=== PATIENT | female | born 1950 | race Caucasian/White ===

== ENCOUNTER 2017-07-17 18:06 | Emergency (ER) | payer OTHER, MEDICARE, MEDICAID ==
[~2017-07-17] VITALS: Ht 162.6 cm; Wt 57.6 kg
[~2017-07-17 18:06] MED LIST: HYDR1CAP2 PO; MUPI1OIN5 NS
--- OUTSIDE RECORDS SUMMARY | 2017-07-17 18:13 | XMS REPORT ---
Author Author KHAI JONES [facility] Address [address] [place] [address] Care Team Providers Care Movie Operator Name Role Phone KHAI JONES Unavailable PROBLEMS Type Condition ICD9-CM Code MVC20-UJ Code Onset Dates Condition Status SNOMED Code Problem Acute bronchitis due to infection J20.8 Active 363051765 Problem Arthritis M19.90 Active 7351339 Problem Renal insufficiency N28.9 Active 917034593 Problem Hyperkalemia E87.5 Active 96526149 Problem Left hip pain M25.552 Active 18450849 Problem Tobacco dependence F17.200 Active 83331320 Problem Depression F32.9 Active 36243950 Problem Upper respiratory infection J06.9 Active 72546882 Problem Long-term use of high-risk medication Z79.899 Active 559768958 Problem Anxiety F41.9 Active 76412192 ALLERGIES No Information SOCIAL HISTORY Never Assessed PLAN OF CARE VITAL SIGNS MEDICATIONS Medication Instructions Dosage Frequency Start Date End Date Duration Status Alprazolam 0.5 MG Orally bid prn 1/2-1 tablet Active RESULTS No Results PROCEDURES No Known procedures IMMUNIZATIONS No Known Immunizations MEDICAL (GENERAL) HISTORY Type Description Date Medical History Depression Medical History Anxiety Medical History Seasonal Allergies Medical History ANNE (obstructive sleep apnea) Surgical History left eye surgery Surgical History partial hysterectomy 1982 Surgical History cataract-lens implants
--- OUTSIDE RECORDS SUMMARY | 2017-07-17 18:13 | XMS REPORT ---
Author Author KHAI JONES Organization eClinicalWorks Address Unknown Phone Unavailable Care Team Providers Care Bee Robber Name Role Phone KHAI JONES CP Unavailable Allergies No Known Allergies Problems Problem Type Condition Code Onset Dates Condition Status Problem Other, multiple, and unspecified sites, insect bite, nonvenomous, without mention of infection 919.4 Active Problem Pain in joint, site unspecified 719.40 Active Problem Pain in joint, shoulder region 719.41 Active Medications No Known Medications Results No Known Results Summary Purpose eClinicalWorks Submission
--- OUTSIDE RECORDS SUMMARY | 2017-07-17 18:13 | XMS REPORT ---
Author Author KHAI JONES [facility] eClinicalWorks Address Unknown Phone Unavailable Care Team Providers Care Manager Neonatal Name Role Phone KHAI JONES CP Unavailable Allergies, Adverse Reactions, Alerts Substance Reaction Event Type Sulfacetamide Sod-Sulfur Info Not Available Drug Allergy Eggs Info Not Available Non Drug Allergy Problems Problem Type Condition Code Onset Dates Condition Status Assessment Anxiety F41.9 Active Assessment Arthritis M19.90 Active Problem Upper respiratory infection J06.9 Active Problem Arthritis M19.90 Active Problem Long-term use of high-risk medication Z79.899 Active Problem Renal insufficiency N28.9 Active Assessment Renal insufficiency N28.9 Active Problem Anxiety F41.9 Active Problem Depression F32.9 Active Medications Medication Code System Code Instructions Start Date End Date Status Dosage Alprazolam [facility] [address]-43 0.5 MG Orally bid prn 1/2-1 tablet Diclofenac Sodium [facility] [address]-38 75 mg oral Once a day prn 1 tablet by Oral route 2 times per day for 30 day Procedures Procedure Coding System Code Date Office Visit, Est Pt., Level 3 CPT-4 29364 Mar 24, 2016 [facility] VISIT ESTABLISHED PATIENT CPT-4 G0467 Mar 24, 2016 Vital Signs Date/Time: Mar 24, 2016 Cardiac Monitoring Heart Rate 76 bpm Weight 130.9 lbs Height 64 in BMI 22.47 Index Blood Pressure Diastolic 68 mmHg Blood Pressure Systolic 108 mmHg Results No Known Results Summary Purpose eClinicalWorks Submission
--- OUTSIDE RECORDS SUMMARY | 2017-07-17 18:13 | XMS REPORT ---
Author Author KHAI JONES [facility] eClinicalWorks Address Unknown Phone Unavailable Care Team Providers Care Centrifugal Spinner Name Role Phone KHAI JONES CP Unavailable Allergies, Adverse Reactions, Alerts Substance Reaction Event Type Sulfacetamide Sod-Sulfur Info Not Available Drug Allergy Eggs Info Not Available Non Drug Allergy Problems Problem Type Condition Code Onset Dates Condition Status Assessment Sinusitis J32.9 Active Assessment Anxiety F41.9 Active Assessment Depression F32.9 Active Problem Arthritis M19.90 Active Problem Anxiety F41.9 Active Problem Upper respiratory infection J06.9 Active Problem Other, multiple, and unspecified sites, insect bite, nonvenomous, without mention of infection 919.4 Active Problem Pain in joint, site unspecified 719.40 Active Problem Depression F32.9 Active Problem Pain in joint, shoulder region 719.41 Active Medications Medication Code System Code Instructions Start Date End Date Status Dosage Alprazolam [facility] [address]-09 0.5 MG Orally bid prn 1/2-1 tablet Vitamin B 12 [facility] [address] 100 MCG Orally not defined Diclofenac Sodium [facility] [address]-07 75 mg oral bid Aug 05, 2014 1 tablet by Oral route 2 times per day for 30 day Doxycycline Hyclate [facility] [address]-14 100 MG Orally every 12 hrs Sep 01, 2015 Sep 15, 2015 1 tablet Procedures Procedure Coding System Code Date Office Visit, Est Pt., Level 3 CPT-4 99653 Sep 01, 2015 Vital Signs Date/Time: Sep 01, 2015 Temperature 97.2 F Weight 128.4 lbs Height 64 in BMI 22.04 Index Blood Pressure Diastolic 76 mmHg Blood Pressure Systolic 106 mmHg Cardiac Monitoring Heart Rate 72 bpm Results No Known Results Summary Purpose eClinicalWorks Submission
--- OUTSIDE RECORDS SUMMARY | 2017-07-17 18:13 | XMS REPORT ---
Author Author KHAI JONES [facility] eClinicalWorks Address Unknown Phone Unavailable Care Team Providers Care Distiller Name Role Phone KHAI JONES CP Unavailable Allergies No Known Allergies Problems Problem Type Condition Code Onset Dates Condition Status Problem Upper respiratory infection J06.9 Active Problem Arthritis M19.90 Active Problem Long-term use of high-risk medication Z79.899 Active Problem Renal insufficiency N28.9 Active Problem Anxiety F41.9 Active Problem Depression F32.9 Active Medications No Known Medications Results No Known Results Summary Purpose eClinicalWorks Submission
--- OUTSIDE RECORDS SUMMARY | 2017-07-17 18:13 | XMS REPORT ---
Author Author KHAI JONES Organization eClinicalWorks Address Unknown Phone Unavailable Care Team Providers Care Project Internship Name Role Phone KHAI JONES CP Unavailable [...] Start Date End Date Status Dosage Alprazolam [facility] [address]-16 0.5 MG Orally bid prn 1/2-1 tablet Results No Known Results Summary Purpose eClinicalWorks Submission
--- OUTSIDE RECORDS SUMMARY | 2017-07-17 18:13 | XMS REPORT ---
Author Author KHAI JONES Organization eClinicalWorks Address Unknown Phone Unavailable Care Team Providers Care Design Director Name Role Phone KHAI JONES CP Unavailable Allergies No Known Allergies Problems Problem Type Condition Code Onset Dates Condition Status Problem Acute bronchitis due to infection J20.8 Active Assessment Tobacco dependence F17.200 Active Problem Long-term use of high-risk medication Z79.899 Active Problem Upper respiratory infection J06.9 Active Problem Tobacco dependence F17.200 Active Problem Depression F32.9 Active Problem Renal insufficiency N28.9 Active Problem Arthritis M19.90 Active Problem Anxiety F41.9 Active Medications No Known Medications Procedures Procedure Coding System Code Date RESPIRATORY FLOW VOLUME LOOP CPT-4 03896 Jul 12, 2016 NEB/MDI DEMO CPT-4 34158 Jul 12, 2016 SPRIOMETRY CHALLENGE CPT-4 60641 Jul 12, 2016 SPIROMETRY CPT-4 08786 Jul 12, 2016 Results Name Result Date Reference Range Unit Abnormality Flag PULMONARY EDUCATION (IN-HOUSE) RESPIRATORY FLOW VOLUME LOOP (IN-HOUSE) BRONCHODILATION PRE/POST (IN-HOUSE) Summary Purpose eClinicalWorks Submission
--- OUTSIDE RECORDS SUMMARY | 2017-07-17 18:13 | XMS REPORT ---
Author Author KHAI JONES [facility] Address [address] [place] [address] Care Team Providers Care Quality Head Name Role Phone KHAI JONES Unavailable PROBLEMS Type Condition ICD9-CM Code [id number] Code Onset Dates Condition Status SNOMED Code Problem Acute bronchitis due to infection J20.8 Active 137370304 Problem Arthritis M19.90 Active 0494039 Problem Renal insufficiency N28.9 Active 512004941 Problem Hyperkalemia E87.5 Active 81805442 Problem Left hip pain M25.552 Active 57693232 Problem Tobacco dependence F17.200 Active 30113715 Problem Depression F32.9 Active 69447556 Problem Upper respiratory infection J06.9 Active 36879713 Problem Long-term use of high-risk medication Z79.899 Active 884007203 Problem Anxiety F41.9 Active 43561527 ALLERGIES Substance Reaction Event Type Date Status Sulfamethoxazole-Trimethoprim Unknown Drug Allergy Oct, Active Eggs Unknown Non Drug Allergy Oct, Active SOCIAL HISTORY Never Assessed PLAN OF CARE Activity Details Follow Up 3 Months Reason: Med VITAL SIGNS Height 64 in 2016-11-01 Weight 128 lbs 2016-11-01 Temperature 97.9 degrees Fahrenheit 2016-11-01 Heart Rate 68 bpm 2016-11-01 Respiratory Rate 20 2016-11-01 BMI 21.97 kg/m2 2016-11-01 Blood pressure systolic 96 mmHg 2016-11-01 Blood pressure diastolic 58 mmHg 2016-11-01 MEDICATIONS Medication Instructions Dosage Frequency Start Date End Date Duration Status Alprazolam 0.5 MG Orally bid prn 1/2-1 tablet Active RESULTS Name Result Date Reference Range [facility] 2016-11-01 Glucose, Serum 90 65-99 BUN 9 8-27 Creatinine, Serum 0.91 0.57-1.00 eGFR If NonAfricn Am 65 >59 eGFR If Africn Am 76 >59 BUN/Creatinine Ratio 10 11-26 Sodium, Serum 144 134-144 Potassium, Serum 5.6 3.5-5.2 Chloride, Serum 101 96-106 Carbon Dioxide, Total 26 18-29 Calcium, Serum 9.8 8.7-10.3 Protein, Total, Serum 6.6 6.0-8.5 Albumin, Serum 4.3 3.6-4.8 Globulin, Total 2.3 1.5-4.5 A/G Ratio 1.9 1.2-2.2 Bilirubin, Total 0.3 0.0-1.2 Alkaline Phosphatase, S 79 39-117 AST (SGOT) 9 0-40 ALT (SGPT) 7 0-32 PROCEDURES Procedure Date Ordered Result Body [facility] November 01, 2016 VENIPUNCT, ROUTINE* November 01, 2016 [facility] VISIT ESTABLISHED PATIENT November 01, 2016 IMMUNIZATIONS No Known Immunizations MEDICAL (GENERAL) HISTORY Type Description Date Medical History Depression Medical History Anxiety Medical History Seasonal Allergies Medical History ANNE (obstructive sleep apnea) Surgical History left eye surgery Surgical History partial hysterectomy 1981 Surgical History cataract-lens implants
--- OUTSIDE RECORDS SUMMARY | 2017-07-17 18:13 | XMS REPORT ---
Author Author NIKOLE TAVERAS Organization eClinicalWorks Address Unknown Phone Unavailable Care Team Providers Care Bus Assistant Name Role Phone NIKOLE TAVERAS CP Unavailable Allergies, Adverse Reactions, Alerts Substance Reaction Event Type Sulfacetamide Sod-Sulfur Info Not Available Drug Allergy Eggs Info Not Available Non Drug Allergy Problems Problem Type Condition Code Onset Dates Condition Status Assessment Rhinorrhea J34.89 Active Assessment Tobacco dependence F17.200 Active Problem Upper respiratory infection J06.9 Active Problem Arthritis M19.90 Active Problem Long-term use of high-risk medication Z79.899 Active Problem Renal insufficiency N28.9 Active Assessment Swollen eyelid, unspecified laterality H02.849 Active Problem Anxiety F41.9 Active Problem Depression F32.9 Active Medications Medication Code System Code Instructions Start Date End Date Status Dosage Diclofenac Sodium [facility] [address]-18 75 mg oral bid 1 tablet by Oral route 2 times per day for 30 day PredniSONE [facility] [address]-94 20 mg Orally Once a day starting 02/19/16 February 18, 2016 February 22, 2016 2 tablets Alprazolam [facility] [address]-36 0.5 MG Orally bid prn 1/2-1 tablet Tylenol Extra Strength [facility] [address]-65 500 MG Orally every 6 hrs 2 tablets as needed Procedures Procedure Coding System Code Date Office Visit, Est Pt., Level 3 CPT-4 09321 February 18, 2016 SOLUMEDROL (UP TO 125 MG) CPT-4 J2930 February 18, 2016 MEASURE BLOOD OXYGEN LEVEL CPT-4 93563 February 18, 2016 THER/PROPH/DIAG INJ, SC/IM CPT-4 56983 February 18, 2016 Vital Signs Date/Time: February 18, 2016 Cardiac Monitoring Heart Rate 76 bpm Weight 127.0 lbs Height 64 in Blood Pressure Diastolic 68 mmHg Blood Pressure Systolic 98 mmHg Results No Known Results Summary Purpose eClinicalWorks Submission
--- OUTSIDE RECORDS SUMMARY | 2017-07-17 18:13 | XMS REPORT ---
Author Author KHAI JONES Organization eClinicalWorks Address Unknown Phone Unavailable Care Team Providers Care Arabic Translator Name Role Phone KHAI JONES CP Unavailable [...] End Date Status Dosage Alprazolam [facility] [address]-31 0.5 MG Orally bid prn 1/2-1 tablet Results No Known Results Summary Purpose eClinicalWorks Submission
--- OUTSIDE RECORDS SUMMARY | 2017-07-17 18:13 | XMS REPORT ---
Author Author KHAI JONES [facility] Address [address] [place] [address] Care Team Providers Care Pier Master Assistant Name Role Phone KHAI JONES Unavailable PROBLEMS Type Condition ICD9-CM Code [id number] Code Onset Dates Condition Status SNOMED Code Problem Acute bronchitis due to infection J20.8 Active 693444972 Problem Long-term use of high-risk medication Z79.899 Active 356512540 Problem Upper respiratory infection J06.9 Active 91695039 Problem Depression F32.9 Active 67363051 Problem Renal insufficiency N28.9 Active 231666093 Problem Arthritis M19.90 Active 9459877 Problem Anxiety F41.9 Active 83276825 ALLERGIES Unknown Allergies SOCIAL HISTORY No smoking Hx information available PLAN OF CARE VITAL SIGNS MEDICATIONS Medication Instructions Dosage Frequency Start Date End Date Duration Status Alprazolam 0.5 MG Orally bid prn 1/2-1 tablet Active RESULTS No Results PROCEDURES No Known procedures IMMUNIZATIONS No Known Immunizations
--- OUTSIDE RECORDS SUMMARY | 2017-07-17 18:14 | XMS REPORT ---
Author Author KHAI JONES [facility] eClinicalWorks Address Unknown Phone Unavailable Care Team Providers Care Die Cutter Name Role Phone KHAI JONES CP Unavailable [...]
--- OUTSIDE RECORDS SUMMARY | 2017-07-17 18:14 | XMS REPORT ---
Author Author KHAI JONES [facility] Address [address] [place] [address] Care Team Providers Care Crossing Tender Name Role Phone KHAI JONES Unavailable PROBLEMS Type Condition ICD9-CM Code AOB46-IB Code Onset Dates Condition Status SNOMED Code Problem Acute bronchitis due to infection J20.8 Active 751761563 Problem Arthritis M19.90 Active 4459072 Problem Renal insufficiency N28.9 Active 037584781 Problem Hyperkalemia E87.5 Active 77847231 Problem Left hip pain M25.552 Active 55233419 Problem Tobacco dependence F17.200 Active 47326659 Problem Depression F32.9 Active 85957080 Problem Upper respiratory infection J06.9 Active 59042097 Problem Long-term use of high-risk medication Z79.899 Active 323435204 Problem Anxiety F41.9 Active 98997235 ALLERGIES No Information SOCIAL HISTORY Never Assessed [...]
--- OUTSIDE RECORDS SUMMARY | 2017-07-17 18:14 | XMS REPORT ---
Author Author KHAI JONES [facility] eClinicalWorks Address Unknown Phone Unavailable Care Team Providers Care Cloth Shearer Name Role Phone KHAI JONES CP Unavailable [...] Pain in joint, shoulder region 719.41 Active Assessment Left knee pain 719.46 Active Medications Medication Code System Code Instructions Start Date End Date Status Dosage Vitamin B 12 [facility] [address] 100 MCG Orally not defined Diclofenac Sodium [facility] [address]-96 75 mg Aug 05, 2014 1 tablet by Oral route 2 times per day for 30 day Procedures Procedure Coding System Code Date Office Visit, New Pt., Level 3 CPT-4 19571 May 13, 2015 X-RAY EXAM OF KNEE, 3 CPT-4 64870 May 13, 2015 Vital Signs Date/Time: May 13, 2015 Temperature 97.0 F Weight 131.6 lbs Height 64 in BMI 22.59 Index Blood Pressure Diastolic 70 mmHg Blood Pressure Systolic 118 mmHg Cardiac Monitoring Heart Rate 72 bpm Results Name Result Date Reference Range Unit Abnormality Flag Xray : Knee, Left 3 views (IN HOUSE) Summary Purpose eClinicalWorks Submission
--- OUTSIDE RECORDS SUMMARY | 2017-07-17 18:14 | XMS REPORT ---
Author Author KHAI JONES [facility] Address [address] [place] [address] Care Team Providers Care Business Services Officer Name Role Phone KHAI JONES Unavailable PROBLEMS Type Condition ICD9-CM Code ZRS84-JS Code Onset Dates Condition Status SNOMED Code Problem Acute bronchitis due to infection J20.8 Active 082058707 Problem Depression F32.9 Active 61485816 Problem Renal insufficiency N28.9 Active 666079229 Problem Hyperkalemia E87.5 Active 68359161 Problem Left hip pain M25.552 Active 37831755 Problem Tobacco dependence F17.200 Active 95037843 Problem Arthritis M19.90 Active 8741649 Problem Anxiety F41.9 Active 29731902 Problem Long-term use of high-risk medication Z79.899 Active 366637503 Problem Upper respiratory infection J06.9 Active 07732319 ALLERGIES No Known Allergies SOCIAL HISTORY No smoking Hx information available PLAN OF CARE VITAL SIGNS MEDICATIONS Medication Instructions Dosage Frequency Start Date End Date Duration Status Symbicort 160-4.5 MCG/ACT Inhalation Twice a day 2 puffs 12h 19 Jul, 2016 Active RESULTS No Results PROCEDURES No Known procedures IMMUNIZATIONS No Known Immunizations
--- OUTSIDE RECORDS SUMMARY | 2017-07-17 18:14 | XMS REPORT ---
Author Author KHAI JONES [facility] Address [address] [place] [address] Care Team Providers Care Deck Molder Name Role Phone KHAI JONES Unavailable PROBLEMS Type Condition ICD9-CM Code TQD35-AP Code Onset Dates Condition Status SNOMED Code Problem Acute bronchitis due to infection J20.8 Active 132520194 Problem Arthritis M19.90 Active 7266378 Problem Renal insufficiency N28.9 Active 281602025 Problem Hyperkalemia E87.5 Active 75878848 Problem Left hip pain M25.552 Active 64446579 Problem Tobacco dependence F17.200 Active 73605788 Problem Depression F32.9 Active 85111933 Problem Upper respiratory infection J06.9 Active 04225431 Problem Long-term use of high-risk medication Z79.899 Active 364741407 Problem Anxiety F41.9 Active 52785258 ALLERGIES Substance Reaction Event Type Date Status Sulfamethoxazole-Trimethoprim Unknown Drug Allergy Aug, Active Eggs Unknown Non Drug Allergy Aug, Active SOCIAL HISTORY No smoking Hx information available PLAN OF CARE Activity Details Follow Up 3 Months or pending lab and xray Reason:CKD/ANxiety VITAL SIGNS Height 64 in 2016-08-23 Weight 130.6 lbs 2016-08-23 Temperature 97.5 degrees Fahrenheit 2016-08-23 Heart Rate 76 bpm 2016-08-23 Respiratory Rate 18 2016-08-23 BMI 22.41 kg/m2 2016-08-23 Blood pressure systolic 100 mmHg 2016-08-23 Blood pressure diastolic 60 mmHg 2016-08-23 MEDICATIONS Medication Instructions Dosage Frequency Start Date End Date Duration Status PredniSONE 20 mg Orally Once a day 1 tablet 24h Aug, Aug, 05 days Active Diclofenac Sodium 75 mg oral Once a day prn 1 tablet by Oral route 2 times per day for 30 day Active Alprazolam 0.5 MG Orally bid prn 1/2-1 tablet Active RESULTS Name Result Date Reference Range CMP 2016-08-23 Glucose, Serum 89 65-99 BUN 14 8-27 Creatinine, Serum 0.97 0.57-1.00 eGFR If NonAfricn Am 61 >59 eGFR If Africn Am 70 >59 BUN/Creatinine Ratio 14 11-26 Sodium, Serum 141 134-144 Potassium, Serum 4.1 3.5-5.2 Chloride, Serum 100 96-106 Carbon Dioxide, Total 25 18-29 Calcium, Serum 8.9 8.7-10.3 Protein, Total, Serum 6.0 6.0-8.5 Albumin, Serum 4.0 3.6-4.8 Globulin, Total 2.0 1.5-4.5 A/G Ratio 2.0 1.1-2.5 Bilirubin, Total <0.2 0.0-1.2 Alkaline Phosphatase, S 70 39-117 AST (SGOT) 9 0-40 ALT (SGPT) 6 0-32 PROCEDURES Procedure Date Ordered Related Diagnosis Body [facility] Aug [facility], [facility] VENIPUNCT, ROUTINE* Aug 23, 2016 Office Visit, Est Pt., Level 4 Aug 23, 2016 [facility] VISIT ESTABLISHED PATIENT Aug 23, 2016 IMMUNIZATIONS No Known Immunizations
--- OUTSIDE RECORDS SUMMARY | 2017-07-17 18:14 | XMS REPORT ---
Author Author KHAI JONES Organization eClinicalWorks Address Unknown Phone Unavailable Care Team Providers Care Barrel Cleaner Name Role Phone KHAI JONES CP Unavailable [...] Start Date End Date Status Dosage Alprazolam [facility] [address]-15 0.5 MG Orally bid prn 1/2-1 tablet Results No Known Results Summary Purpose eClinicalWorks Submission
--- OUTSIDE RECORDS SUMMARY | 2017-07-17 18:14 | XMS REPORT ---
Author Author KHAI JONES Organization eClinicalWorks Address Unknown Phone Unavailable Care Team Providers Care Sales Representative Supervisor Name Role Phone KHAI JONES CP Unavailable Allergies No Known Allergies Problems Problem Type Condition Code Onset Dates Condition Status Problem Acute bronchitis due to infection J20.8 Active Problem Long-term use of high-risk medication Z79.899 Active Problem Upper respiratory infection J06.9 Active Problem Tobacco dependence F17.200 Active Problem Depression F32.9 Active Problem Renal insufficiency N28.9 Active Problem Arthritis M19.90 Active Problem Anxiety F41.9 Active Medications Medication Code System Code Instructions Start Date End Date Status Dosage Alprazolam [facility] [address]-18 0.5 MG Orally bid prn 1/2-1 tablet Results No Known Results Summary Purpose eClinicalWorks Submission
--- OUTSIDE RECORDS SUMMARY | 2017-07-17 18:14 | XMS REPORT ---
Author Author KHAI JONES [facility] eClinicalWorks Address Unknown Phone Unavailable Care Team Providers Care Incoming Freight Clerk Name Role Phone KHAI JONES CP Unavailable Allergies, Adverse Reactions, Alerts Substance Reaction Event Type Sulfacetamide Sod-Sulfur Info Not Available Drug Allergy Eggs Info Not Available Non Drug Allergy Problems Problem Type Condition Code Onset Dates Condition Status Assessment Anxiety F41.9 Active Assessment Upper respiratory infection J06.9 Active Assessment Arthritis M19.90 Active Assessment Depression F32.9 Active Problem Arthritis [...] End Date Status Dosage Vitamin B 12 [facility] [address] 100 MCG Orally not defined Diclofenac Sodium [facility] [address]-38 75 mg oral bid Aug 05, 2014 1 tablet by Oral route 2 times per day for 30 day Alprazolam [facility] [address]-26 0.5 MG Orally bid prn Aug 11, 2015 1/2- 1 tablet Azithromycin [facility] [address]-21 250 MG Orally Once a day Aug 11, 2015 Aug 18, 2015 2 tablets on the first day, then 1 tablet daily for 6 days Procedures Procedure Coding System Code Date Office Visit, Est Pt., Level 4 CPT-4 15651 Aug 11, 2015 Vital Signs Date/Time: Aug 11, 2015 Temperature 98.1 F Weight 128.6 lbs Height 64 in BMI 22.07 Index Blood Pressure Diastolic 74 mmHg Blood Pressure Systolic 102 mmHg Cardiac Monitoring Heart Rate 68 bpm Results No Known Results Summary Purpose eClinicalWorks Submission
--- OUTSIDE RECORDS SUMMARY | 2017-07-17 18:14 | XMS REPORT ---
Author Author KHAI JONES Organization eClinicalWorks Address Unknown Phone Unavailable Care Team Providers Care Fiberglass Quality Technician Name Role Phone KHAI JONES CP Unavailable Allergies No Known Allergies Problems Problem Type Condition Code Onset Dates Condition Status Problem Arthritis M19.90 Active Problem Anxiety F41.9 Active Problem Upper respiratory infection J06.9 Active Problem Depression F32.9 Active Medications Medication Code System Code Instructions Start Date End Date Status Dosage Alprazolam [facility][NOTE 3] [address]-92 0.5 MG Orally bid prn 1/2-1 tablet Results No Known Results Summary Purpose eClinicalWorks Submission
--- OUTSIDE RECORDS SUMMARY | 2017-07-17 18:14 | XMS REPORT ---
Author Author KHAI JONES Organization [employer] Address Unknown Phone Unavailable Care Team Providers Care Registered Route Associate Name Role Phone KHAI JONES CP Unavailable Allergies No Known Allergies Problems Problem Type Condition Code Onset Dates Condition Status Problem Upper respiratory infection J06.9 Active Problem Arthritis M19.90 Active Problem Long-term use of high-risk medication Z79.899 Active Problem Renal insufficiency N28.9 Active Assessment Renal insufficiency N28.9 Active Problem Anxiety F41.9 Active Problem Depression F32.9 Active Medications No Known Medications Procedures Procedure Coding System Code Date VENIPUNCT, ROUTINE* CPT-4 65654 Mar 14, 2016 COMPREHEN METABOLIC PANEL CPT-4 23577 Mar 14, 2016 Results No Known Results Summary Purpose [employer]ClinicalWorks Submission
--- OUTSIDE RECORDS SUMMARY | 2017-07-17 18:14 | XMS REPORT ---
Author Author ELEAZAR JIMENEZ Organization [employer] Address Unknown Phone Unavailable Care Team Providers Care Consulting Networking Engineer Name Role Phone ELEAZAR JIMENEZ CP Unavailable Allergies, Adverse Reactions, Alerts Substance Reaction Event Type Sulfacetamide Sod-Sulfur Info Not Available Drug Allergy Eggs Info Not Available Non Drug Allergy Problems Problem Type Condition Code Onset Dates Condition Status Problem Upper respiratory infection J06.9 Active Problem Arthritis M19.90 Active Problem Long-term use of high-risk medication Z79.899 Active Problem Renal insufficiency N28.9 Active Assessment Acute bronchitis, unspecified organism J20.9 Active Problem Anxiety F41.9 Active Problem Depression F32.9 Active Medications Medication Code System Code Instructions Start Date End Date Status Dosage Azithromycin [facility] [address]-42 250 MG Orally Once a day Jun 13, 2016 Jun 18, 2016 2 tablets on the first day, then 1 tablet daily for 4 days Diclofenac Sodium [facility] [address]-57 75 mg oral Once a day prn 1 tablet by Oral route 2 times per day for 30 day ProAir HFA [facility] [address]-39 108 (90 Base) MCG/ACT Inhalation every 4 hrs Jun 13, 2016 2 puffs as needed Alprazolam [facility] [address]-08 0.5 MG Orally bid prn 1/2-[address] [facility] [address]-44 10 mg Orally Once a day Jun 13, 2016 Jun 18, 2016 1 tablet Tylenol Extra Strength [facility] [address]-06 500 MG Orally every 6 hrs 2 tablets as needed Procedures Procedure Coding System Code Date [facility] VISIT ESTABLISHED PATIENT CPT-4 G0467 Jun 13, 2016 Office Visit, Est Pt., Level 3 CPT-4 28640 Jun 13, 2016 CHEST X-RAY CPT-4 96810 Jun 13, 2016 Vital Signs Date/Time: Jun 13, 2016 Cardiac Monitoring Heart Rate 76 bpm Weight 128.6 lbs Height 64 in BMI 22.07 Index Blood Pressure Diastolic 70 mmHg Blood Pressure Systolic 102 mmHg Results No Known Results Summary Purpose eClinicalWorks Submission
--- OUTSIDE RECORDS SUMMARY | 2017-07-17 18:14 | XMS REPORT ---
Author Author KHAI JONES [facility] e[employer] Address Unknown Phone Unavailable Care Team Providers Care Stitchdowns Toe Former Name Role Phone KHAI JONES CP Unavailable Allergies, Adverse Reactions, Alerts Substance Reaction Event Type Sulfamethoxazole-Trimethoprim Info Not Available Drug Allergy Eggs Info Not Available Non Drug Allergy Problems Problem Type Condition Code Onset Dates Condition Status Assessment Arthritis M19.90 Active Assessment Anxiety F41.9 Active Assessment Renal insufficiency N28.9 Active Assessment Cough R05 Active Problem Upper respiratory infection J06.9 Active Problem Arthritis M19.90 Active Problem Long-term use of high-risk medication Z79.899 Active Problem Renal insufficiency N28.9 Active Problem Acute bronchitis due to infection J20.8 Active Problem Anxiety F41.9 Active Problem Depression F32.9 Active Medications Medication Code System Code Instructions Start Date End Date Status Dosage PredniSONE [facility] [address]-33 10 MG Orally Once a day Jun 30, 2016 Jul 05, [address] [facility] [address]-64 0.5 MG Orally bid prn 1/2-[address] [facility] [address]-39 75 mg oral Once a day prn 1 tablet by Oral route 2 times per day for 30 day Procedures Procedure Coding System Code Date SPIROMETRY CPT-4 75871 Jun 30, 2016 NEB/I DEMO CPT-4 44443 Jun 30, 2016 [facility] NOBLL Jun 30, 2016 Office Visit, Est Pt., Level 3 CPT-4 20810 Jun 30, 2016 [facility] VISIT ESTABLISHED PATIENT CPT-4 G0467 Jun 30, 2016 VENIPUNCT, ROUTINE* CPT-4 17615 Jun 30, 2016 Vital Signs Date/Time: Jun 30, 2016 Cardiac Monitoring Heart Rate 84 bpm Weight 127.4 lbs Height 64 in BMI 21.87 Index Blood Pressure Diastolic 64 mmHg Blood Pressure Systolic 112 mmHg Results Name Result Date Reference Range Unit Abnormality Flag ROUTINE VENIPUNCTURE CMP ----Sodium, Serum 139 20160630 136-144 mmol/L ----BUN/Creatinine Ratio 11 20160630 11-26 ----Chloride, Serum 100 20160630 97-106 mmol/L ----Potassium, Serum 4.5 20160630 3.5-5.2 mmol/L ----Calcium, Serum 9.3 20160630 8.7-10.3 mg/dL ----Protein, Total, Serum 6.6 52026408 6.0-8.5 g/dL ----Carbon Dioxide, Total 23 20160630 18-29 mmol/L ----A/G Ratio 1.8 20160630 1.1-2.5 ----eGFR If NonAfricn Am 75 56023354 >59 mL/min/1.73 ----Bilirubin, Total 0.2 01746122 0.0-1.2 mg/dL ----eGFR If Africn Am 86 60204017 >59 mL/min/1.73 ----BUN 9 20160630 8-27 mg/dL ----Albumin, Serum 4.2 11000069 3.6-4.8 g/dL ----Globulin, Total 2.4 72451737 1.5-4.5 g/dL ----Creatinine, Serum 0.82 20160630 0.57-1.00 mg/dL ----ALT (SGPT) 7 20160630 0-32 IU/L ----Glucose, Serum 82 20160630 65-99 mg/dL ----Alkaline Phosphatase, S 77 20160630 39-117 IU/L ----AST (SGOT) 9 20160630 0-40 IU/L Summary Purpose eClinicalWorks Submission
--- OUTSIDE RECORDS SUMMARY | 2017-07-17 18:14 | XMS REPORT ---
Author Author KHAI JONES [facility] Address [address] [place] [address] Care Team Providers Care Railroad Cook Name Role Phone KHAI JONES Unavailable PROBLEMS Type Condition ICD9-CM Code [id number] Code Onset Dates Condition Status SNOMED Code Problem Acute bronchitis due to infection J20.8 Active 218537629 Problem Depression F32.9 Active 28392486 Problem Renal insufficiency N28.9 Active 172936800 Problem Hyperkalemia E87.5 Active 48977271 Problem Left hip pain M25.552 Active 77671910 Problem Tobacco dependence F17.200 Active 07553694 Problem Arthritis M19.90 Active 4554997 Problem Anxiety F41.9 Active 73123817 Problem Long-term use of high-risk medication Z79.899 Active 525935173 Problem Upper respiratory infection J06.9 Active 00184460 ALLERGIES No Known Allergies SOCIAL HISTORY No smoking Hx information available PLAN OF CARE VITAL SIGNS MEDICATIONS Medication Instructions Dosage Frequency Start Date End Date Duration Status Alprazolam 0.5 MG Orally bid prn 1/2-1 tablet Active RESULTS No Results PROCEDURES No Known procedures IMMUNIZATIONS No Known Immunizations
--- OUTSIDE RECORDS SUMMARY | 2017-07-17 18:15 | XMS REPORT ---
Author Author KHAI JONES [facility] Address [address] [place] [address] Care Team Providers Care Drawing In Machine Tender Helper Name Role Phone KHAI JONES Unavailable PROBLEMS Type Condition ICD9-CM Code VLI02-KR Code Onset Dates Condition Status SNOMED Code Problem Acute bronchitis due to infection J20.8 Active 673993999 Problem Arthritis M19.90 Active 5743965 Problem Renal insufficiency N28.9 Active 538664055 Problem Hyperkalemia E87.5 Active 57496230 Problem Left hip pain M25.552 Active 44991562 Problem Tobacco dependence F17.200 Active 35609373 Problem Depression F32.9 Active 63692451 Problem Upper respiratory infection J06.9 Active 29106343 Problem Long-term use of high-risk medication Z79.899 Active 190884039 Problem Anxiety F41.9 Active 31894484 ALLERGIES No Information SOCIAL HISTORY Never Assessed [...]
--- OUTSIDE RECORDS SUMMARY | 2017-07-17 18:15 | XMS REPORT ---
Author Author KHAI JONES Organization [employer] Address Unknown Phone Unavailable Care Team Providers Care Burr Bench Operator Name Role Phone KHAI JONES CP Unavailable [...] in joint, shoulder region 719.41 Active Assessment Arthritis of left knee M19.90 Active Medications Medication Code System Code Instructions Start Date End Date Status Dosage Diclofenac Sodium [facility] [address]-19 75 mg Aug 05, 2014 1 tablet by Oral route 2 times per day for 30 day Vitamin B 12 [facility] [address] 100 MCG Orally not defined Procedures Procedure Coding System Code Date Office Visit, Est Pt., Level 3 CPT-4 58401 May 28, 2015 DRAIN/INJECT, JOINT/BURSA CPT-4 69860 May 28, 2015 Vital Signs Date/Time: May 28, 2015 Temperature 97.0 F Weight 128.9 lbs Height 64 in BMI 22.12 Index Blood Pressure Diastolic 66 mmHg Blood Pressure Systolic 98 mmHg Cardiac Monitoring Heart Rate 72 bpm Results No Known Results Summary Purpose eClinicalWorks Submission
--- OUTSIDE RECORDS SUMMARY | 2017-07-17 18:15 | XMS REPORT ---
Author Author KHAI JONES [facility] Address [address] [place] [address] Care Team Providers Care Base Cloth Inspector Name Role Phone KHAI JONES Unavailable PROBLEMS Type Condition ICD9-CM Code IYE02-HA Code Onset Dates Condition Status SNOMED Code Problem Acute bronchitis due to infection J20.8 Active 562788706 Problem Arthritis M19.90 Active 9274202 Problem Renal insufficiency N28.9 Active 760039904 Problem Hyperkalemia E87.5 Active 35063988 Problem Left hip pain M25.552 Active 54916887 Problem Tobacco dependence F17.200 Active 85470536 Problem Depression F32.9 Active 77953351 Problem Upper respiratory infection J06.9 Active 08773190 Problem Long-term use of high-risk medication Z79.899 Active 225199077 Problem Anxiety F41.9 Active 23314135 ALLERGIES No Known Allergies SOCIAL HISTORY No smoking Hx information available PLAN OF CARE VITAL SIGNS MEDICATIONS No Known Medications RESULTS No Results PROCEDURES No Known procedures IMMUNIZATIONS No Known Immunizations
--- OUTSIDE RECORDS SUMMARY | 2017-07-17 18:15 | XMS REPORT | Continuity of Care Document ---
Author Author [facility] Address Unknown Phone Unavailable Allergies Medications Problems Date Dx Coded Attending Type Code Diagnosis Diagnosed By 03/08/2008 719.46 PAIN IN JOINT INVOLVING LOWER LEG 03/08/2008 719.46 PAIN IN JOINT INVOLVING LOWER LEG 03/08/2008 719.46 PAIN IN JOINT INVOLVING LOWER LEG 03/08/2008 719.46 PAIN IN JOINT INVOLVING LOWER LEG 03/08/2008 719.46 PAIN IN JOINT INVOLVING LOWER LEG 03/08/2008 KHAI JONES APRN 719.46 PAIN IN JOINT INVOLVING LOWER LEG 03/08/2008 KHAI JONES APRN 719.46 PAIN IN JOINT INVOLVING LOWER LEG 05/23/2008 715.90 OSTEOARTHROSIS UNSPECIFIED WHETHER GENERALIZED OR LOCALIZED INVOLVING UNSPECIFIED SITE 05/23/2008 715.90 OSTEOARTHROSIS UNSPECIFIED WHETHER GENERALIZED OR LOCALIZED INVOLVING UNSPECIFIED SITE 05/23/2008 715.90 OSTEOARTHROSIS UNSPECIFIED WHETHER GENERALIZED OR LOCALIZED INVOLVING UNSPECIFIED SITE 05/23/2008 715.90 OSTEOARTHROSIS UNSPECIFIED WHETHER GENERALIZED OR LOCALIZED INVOLVING UNSPECIFIED SITE 05/23/2008 715.90 OSTEOARTHROSIS UNSPECIFIED WHETHER GENERALIZED OR LOCALIZED INVOLVING UNSPECIFIED SITE 05/23/2008 KULWANT JONES APRNA Crystal 715.90 OSTEOARTHROSIS UNSPECIFIED WHETHER GENERALIZED OR LOCALIZED INVOLVING UNSPECIFIED SITE 05/23/2008 DANIELLA JONES APRNWNYA L 715.90 OSTEOARTHROSIS UNSPECIFIED WHETHER GENERALIZED OR LOCALIZED INVOLVING UNSPECIFIED SITE 09/03/2008 293.84 ANXIETY DISORDER IN CONDITIONS CLASSIFIED ELSEWHERE 09/03/2008 460 ACUTE NASOPHARYNGITIS (COMMON COLD) 09/03/2008 V18.0 FAMILY HISTORY OF DIABETES MELLITUS 09/03/2008 293.84 ANXIETY DISORDER IN CONDITIONS CLASSIFIED ELSEWHERE 09/03/2008 460 ACUTE NASOPHARYNGITIS (COMMON COLD) 09/03/2008 V18.0 FAMILY HISTORY OF DIABETES MELLITUS 09/03/2008 293.84 ANXIETY DISORDER IN CONDITIONS CLASSIFIED ELSEWHERE 09/03/2008 460 ACUTE NASOPHARYNGITIS (COMMON COLD) 09/03/2008 V18.0 FAMILY HISTORY OF DIABETES MELLITUS 09/03/2008 293.84 ANXIETY DISORDER IN CONDITIONS CLASSIFIED ELSEWHERE 09/03/2008 460 ACUTE NASOPHARYNGITIS (COMMON COLD) 09/03/2008 V18.0 FAMILY HISTORY OF DIABETES MELLITUS 09/03/2008 293.84 ANXIETY DISORDER IN CONDITIONS CLASSIFIED ELSEWHERE 09/03/2008 460 ACUTE NASOPHARYNGITIS (COMMON COLD) 09/03/2008 V18.0 FAMILY HISTORY OF DIABETES MELLITUS 09/03/2008 MALICK JONES APRNNYA L 293.84 ANXIETY DISORDER IN CONDITIONS CLASSIFIED ELSEWHERE 09/03/2008 MALICK JONES APRNNYA L 460 ACUTE NASOPHARYNGITIS (COMMON COLD) 09/03/2008 MADL MALICK HENRYNYA L V18.0 FAMILY HISTORY OF DIABETES MELLITUS 09/03/2008 BECKIEL MALICK HENRYNYA L 293.84 ANXIETY DISORDER IN CONDITIONS CLASSIFIED ELSEWHERE 09/03/2008 MALICK JONES APRNNYA L 460 ACUTE NASOPHARYNGITIS (COMMON COLD) 09/03/2008 MADL MALICK HENRYNYA L V18.0 FAMILY HISTORY OF DIABETES MELLITUS 11/10/2012 719.40 ARTHRAIGIA UNSPEC 11/10/2012 719.40 ARTHRAIGIA UNSPEC 11/10/2012 719.40 ARTHRAIGIA UNSPEC 11/10/2012 719.40 ARTHRAIGIA UNSPEC 11/10/2012 719.40 ARTHRAIGIA UNSPEC 11/10/2012 MALICK JONES APRNNYA L 719.40 ARTHRAIGIA UNSPEC 11/10/2012 BECKIEL CARE MGRMALICK AlanizNYA L 719.40 ARTHRAIGIA UNSPEC 04/10/2013 919.4 INSECT BITE NONVENOMOUS OF OTHER MULTIPLE AND UNSPECIFIED SITES WITHOUT INFECTION 04/10/2013 MALICK JONES APRNNYA L 919.4 INSECT BITE NONVENOMOUS OF OTHER MULTIPLE AND UNSPECIFIED SITES WITHOUT INFECTION 04/10/2013 MALICK JONES APRNNYA L 919.4 INSECT BITE NONVENOMOUS OF OTHER MULTIPLE AND UNSPECIFIED SITES WITHOUT INFECTION 07/22/2014 KHAI JONES APRN L 719.41 PAIN IN JOINT INVOLVING SHOULDER REGION 07/22/2014 KHAI JONES APRN Crystal 719.41 PAIN IN JOINT INVOLVING SHOULDER REGION Procedures Code [place] [address] ROUTINE VENIPUNCTURE 11/12/2012 80906 CMP 11/12/2012 31299 LIPID PANEL 11/12 53779 VITAMIN D 25-HYDROXY (D2,D3, TOTAL) 11/12/2012 30353 TSH 11/12/2012 84057 CBC 11/12/2012 81313 CRP 11/12/2012 43814 RA FACTOR 2012 34384 XRAY SHOULDER RIGHT COMP 2 VIEWS 07/22/2014 Results Encounters ACCT No. Visit Date/Time Discharge Status Pt. Type Provider Facility Loc./Unit Complaint [id number] 08/05/2014 13:38:00 08/05/2014 23: 59:59 CLS Outpatient KHAI JONES APRN [id number] 07/22/2014 13:34:00 07/22/2014 23: 59:59 CLS Outpatient KHAI JONES APRN [id number] 11/12/2012 08:00:00 11/12/2012 23: 59:59 CLS Outpatient [id number] 11/10/2012 12:17:00 11/10/2012 23: 59:59 CLS Outpatient [id number] 04/10/2013 16:15:00 Document Registration [id number] 01/11/2013 09:54:00 Document Registration [id number] 12/04/2012 14:07:00 Document Registration
--- OUTSIDE RECORDS SUMMARY | 2017-07-17 18:15 | XMS REPORT ---
Author Author KHAI JONES [facility] Address [address] [place] [address] Care Team Providers Care Medical Unit Secretary Name Role Phone KHAI JONES Unavailable PROBLEMS Type Condition ICD9-CM Code YVZ18-UO Code Onset Dates Condition Status SNOMED Code Problem Acute bronchitis due to infection J20.8 Active 446733637 Problem Arthritis M19.90 Active 0576069 Problem Renal insufficiency N28.9 Active 842890203 Problem Hyperkalemia E87.5 Active 67463618 Problem Left hip pain M25.552 Active 11767232 Problem Tobacco dependence F17.200 Active 98330950 Problem Depression F32.9 Active 10624794 Problem Upper respiratory infection J06.9 Active 28828593 Problem Long-term use of high-risk medication Z79.899 Active 753903534 Problem Anxiety F41.9 Active 92835490 ALLERGIES No Known Allergies SOCIAL HISTORY No smoking Hx information available PLAN OF CARE VITAL SIGNS MEDICATIONS Medication Instructions Dosage Frequency Start Date End Date Duration Status Alprazolam 0.5 MG Orally bid prn 1/2-1 tablet Active RESULTS No Results PROCEDURES No Known procedures IMMUNIZATIONS No Known Immunizations
--- OUTSIDE RECORDS SUMMARY | 2017-07-17 18:15 | XMS REPORT ---
Author Author KHAI JONES [facility] eClinicalWorks Address Unknown Phone Unavailable Care Team Providers Care Aircraft Refueler Name Role Phone KHAI JONES CP Unavailable [...]
[2017-07-17] MEDS ORDERED: ALPR0.5T7 PO (18:56)
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
[2017-07-17 19:13] VITALS: BP 104/52
== END 2017-07-17 19:13 | disposition home or self-care (01) ==
LOC: EDUNIT# 18:06 → ER 18:09
DX: S89.92XA Unspecified injury of left lower leg, initial encounter (principal); Z90.710 Acquired absence of both cervix and uterus; Z98.51 Tubal ligation status; V03.10XA Pedestrian on foot injured in collision with car, pick-up truck or van in traffic accident, initial encounter; Y92.481 Parking lot as the place of occurrence of the external cause
CPT/HCPCS: 73562

== ENCOUNTER → 2017-07-26 | Outpatient (CLI) | payer OTHER, MEDICARE, MEDICAID ==
[~2017-07-26] MED LIST changes: +ALPR0.5T7 PO
--- NOTE | 2017-07-26 08:58 | Diagnostic Imaging Report ---
PROCEDURE: MRI left joint lower extremity without contrast. TECHNIQUE: Multiplanar, multisequence non contrast-enhanced MRI of the left lower extremity was accomplished. INDICATION: Left knee pain. FINDINGS: There is a small suprapatellar effusion. The extensor mechanism appear intact. The PCL demonstrates increased signal and thickening in its proximal aspect without complete disruption of its fibers suggestive of a partial tear, age indeterminate. The ACL demonstrates no significant tear. The medial meniscus demonstrates a complex tear involving the body and extending into the posterior horn. The lateral meniscus demonstrates increased signal in the posterior root suggestive of a nondisplaced tear or degeneration. The MCL is slightly thickened probably related to an old injury. The lateral collateral ligament complex appears intact. There is no Hunter's cyst. There is bone marrow edema involving the lateral femoral condyle suggestive of a contusion. No macroscopic fracture line is identified. There is severe cartilage thinning in the medial compartment and there is minimal cartilage thinning in the lateral and patellofemoral compartments. IMPRESSION: 1. Complex tear involving the body and posterior horn of the medial meniscus. 2. Nondisplaced tear or degeneration in the posterior root of the lateral meniscus. 3. Severe cartilage thinning in the medial compartment. 4. Proximal PCL increased signal suggestive of age indeterminate partial tear. Dictated by: Dictated on workstation # [id number]
== END ==
LOC: RAD 07:49
PROVIDERS: ATTEND Nurse Practitioner Family
DX: S83.232A Complex tear of medial meniscus, current injury, left knee, initial encounter (principal); S83.272A Complex tear of lateral meniscus, current injury, left knee, initial encounter; M94.8X8 Other specified disorders of cartilage, other site
CPT/HCPCS: 73721